=== PATIENT | female | born 1980 | race Caucasian/White ===

== ENCOUNTER 2022-12-01 13:02 | Emergency (ER) | payer OTHER ==
[2022-12-01] MEDS ORDERED: Lidocaine 1% 10 ML MDV INJECT ONE (15:13)
[2022-12-01] MEDS ORDERED: Acetaminophen/HYDROcodone 325-5 MG Tab PO ONE (16:28)
[2022-12-01] MEDS ORDERED: LORazepam 0.5 MG Tab PO ONE (16:28)
== END 2022-12-01 17:56 | disposition home or self-care (01) ==
LOC: JD.ED 13:02
DX: S06.0X0A Concussion without loss of consciousness, initial encounter (principal); S01.112A Laceration without foreign body of left eyelid and periocular area, initial encounter; I10 Essential (primary) hypertension; Z91.013 Allergy to seafood; V89.2XXA Person injured in unspecified motor-vehicle accident, traffic, initial encounter; Y92.481 Parking lot as the place of occurrence of the external cause
CPT/HCPCS: 12011; 70450; 70486; 72125; 99284; A9270; 99283; J3490

== ENCOUNTER 2024-09-17 20:33 | Emergency (ER) | payer SELFPAY ==
[2024-09-17] MEDS ORDERED: Lidocaine 1% 10 ML MDV INJECT ONE (21:04)
== END 2024-09-17 22:24 | disposition home or self-care (01) ==
LOC: JD.ED 20:33
DX: S61.512A Laceration without foreign body of left wrist, initial encounter (principal); I10 Essential (primary) hypertension; Z91.013 Allergy to seafood; W27.2XXA Contact with scissors, initial encounter
CPT/HCPCS: 12002; 99282; 99283